=== PATIENT | male | born 2000 | race Caucasian/White ===

== ENCOUNTER 2024-12-25 10:37 | Emergency (ER) | payer OTHER | END 2024-12-25 14:04 | disposition home or self-care (01) | LOC: MW.ED 10:37 | DX: S93.401A Sprain of unspecified ligament of right ankle, initial encounter (principal); X50.1XXA Overexertion from prolonged static or awkward postures, initial encounter | CPT/HCPCS: 73600-26-RT; 73600-RT; 99283 ==